=== PATIENT | female | born 1980 | race Caucasian/White ===

== ENCOUNTER 2016-05-17 21:17 | Emergency (ER) | payer OTHER ==
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
[2016-05-17] MEDS ORDERED: HYDROmorphone 1 MG INJECTION IV ONE ×4 (21:26→23:33)
[2016-05-17] MEDS ORDERED: NS 1,000 ML IV ONE (21:26)
[2016-05-17] MEDS ORDERED: ONDANSETRON HCL 4 MG/2 ML VIAL IV ONE ×2 (21:26→23:43)
[2016-05-17 21:48] LABS: MPV 7.5 fL (7.4-10.4)
[2016-05-17] MEDS ORDERED: LORAZEPAM 2 MG/ML VIAL IV ONE (21:54)
[2016-05-17 21:57] VITALS: BMI 58.1
[2016-05-17 21:58] LABS: BLOOD UREA NITROGEN 14 MG/DL (7-17); CALC CORRECTED 8.9 MG/DL (8.4-10.2); CALCIUM 8.7 MG/DL (8.4-10.2); CALCULATED OSMOLALITY 265 MOs/Kg (270-290); CHLORIDE 100 mEq/L (98-107); GLUCOSE 138 MG/DL (70-99); SODIUM LEVEL 136 mEq/L (137-146); TOTAL PROTEIN 7.1 G/DL (6.3-8.2)
[2016-05-17] MEDS ORDERED: Pharmacy Review for Metformin - IV Contrast Given SCH (22:00)
[2016-05-17 22:07] LABS: SEG NEUTROPHIL 74 % (45-76)
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
[2016-05-18] MEDS ORDERED: HYDROmorphone 1 MG INJECTION IV ONE (00:24)
[2016-05-18 00:40] VITALS: BP 135/85; PULSE 112; TEMP 98.7
== END 2016-05-18 00:30 | disposition short-term general hospital (02) ==
LOC: ED 21:17
DX: S32.401A Unspecified fracture of right acetabulum, initial encounter for closed fracture (principal); S73.004A Unspecified dislocation of right hip, initial encounter; V49.50XA Passenger injured in collision with unspecified motor vehicles in traffic accident, initial encounter; Y93.9 Activity, unspecified; Y92.410 Unspecified street and highway as the place of occurrence of the external cause; R51 Headache
CPT/HCPCS: 36415; 70450; 71260; 72125; 73552; 73564; 74177; 80053; 83690; 84484; 85007; 85027; 96361; 96374; 96375; 96376; 99285; A9698; J1170; J2060; J2405